=== PATIENT | female | born 1960 | race Caucasian/White ===

== ENCOUNTER 2020-09-04 17:15 | Emergency (ER) | payer OTHER, SELFPAY ==
[~2020-09-04] VITALS: Ht 157.5 cm; Wt 81.6 kg
[2020-09-04 17:16] VITALS: BP 137/70; Ht 157.5 cm; Wt 81.6 kg
== END 2020-09-04 19:13 | disposition home or self-care (01) ==
LOC: ED 17:15
DX: U07.1 COVID-19 (principal); I10 Essential (primary) hypertension; E11.9 Type 2 diabetes mellitus without complications
CPT/HCPCS: U0003